=== PATIENT | female | born 1960 | race Caucasian/White ===

== ENCOUNTER → 2016-03-08 | Outpatient (CLI) | payer BC ==
[~2016-03-08] MED LIST: ASPI-390 PO; HYDR200T5 PO; IBUP-1050 PO; MULT-506 PO; PSEU60TA80 PO
[2016-03-08 10:57] LABS: BASO % 0.3 %; BASO ABS # 0.01 K/uL (0-0.2); COMPLETE YES; EOS % 1.9 %; HEMATOCRIT 38.9 % (37-47); IG% 0.3 %; LYMPH ABS # 1.59 K/uL (1.2-3.4); MEAN CELL VOLUME 94.2 fL (80-100); MEAN CORPUSCULAR HEMOGLOBIN 31.5 pg (25-34); MEAN CORPUSCULAR HGB CONC 33.4 g/dl (32-36); MEAN PLATELET VOLUME 11.2 fL (7.4-10.4); MONO % 7.8 %; NEUT % 46.7 %; PLATELET COUNT 186 K/uL (130-400); RED BLOOD COUNT 4.13 M/uL (4.2-5.4)
[2016-03-08 11:18] LABS: CREATININE 0.69 mg/dl (0.60-1.20)
== END | disposition home or self-care (01) ==
LOC: C.LABBC 08:07
PROVIDERS: ATTEND Internal Medicine Rheumatology
DX: M32.9 Systemic lupus erythematosus, unspecified (principal); Q79.6 Ehlers-Danlos syndromes; Z51.81 Encounter for therapeutic drug level monitoring; Z79.899 Other long term (current) drug therapy

== ENCOUNTER → 2016-03-20 | Outpatient (CLI) | payer BC | END | disposition home or self-care (01) | LOC: C.LABSPEC 11:24 | PROVIDERS: ATTEND Obstetrics & Gynecology | DX: N94.9 Unspecified condition associated with female genital organs and menstrual cycle (principal) ==

== ENCOUNTER → 2016-03-28 | Outpatient (CLI) | payer BC ==
[2016-03-28 12:00] LABS: BASO % 0.2 %; BASO ABS # 0.01 K/uL (0-0.2); COMPLETE YES; EOS % 1.4 %; HEMATOCRIT 38.9 % (37-47); LYMPH % 47.4 %; LYMPH ABS # 1.97 K/uL (1.2-3.4); MEAN CELL VOLUME 92.2 fL (80-100); MEAN CORPUSCULAR HEMOGLOBIN 30.8 pg (25-34); MEAN CORPUSCULAR HGB CONC 33.4 g/dl (32-36); MEAN PLATELET VOLUME 10.6 fL (7.4-10.4); MONO % 8.7 %; NEUT % 42.3 %; PLATELET COUNT 208 K/uL (130-400); RED BLOOD COUNT 4.22 M/uL (4.2-5.4); WHITE BLOOD COUNT 4.16 K/uL (4.8-10.8)
[2016-03-28 12:01] LABS: URINE APPEARANCE CLEAR (CLEAR); URINE BILIRUBIN NEG (NEG); URINE COLOR YELLOW; URINE NITRITE NEG (NEG); URINE SPECIFIC GRAVITY 1.014 (1.000-1.030); UROBILINOGEN NEG (NEG); ZZUR CULT IF INDIC CLEAN CATCH NO
[2016-03-28 12:16] LABS: MANUAL MICROSCOPIC REQUIRED? NO; REVIEW REQ? NO
[2016-04-02 02:23] LABS: ANTI-CENTROMERE AB <1.0 NEG AI (<1.0 NEG); ANTI-SS-A <1.0 NEG AI (<1.0 NEG); ANTI-SS-B <1.0 NEG AI (<1.0 NEG); DNA ds CRITHIDIA NEGATIVE (NEGATIVE); Sm Antibody <1.0 NEG AI (<1.0 NEG)
[2016-04-02 12:48] LABS: ANA TITER 1:40 TITER (<1:40)
== END | disposition home or self-care (01) ==
LOC: C.LAB1850 11:01
PROVIDERS: ATTEND Internal Medicine Rheumatology
DX: M32.9 Systemic lupus erythematosus, unspecified (principal); Z79.899 Other long term (current) drug therapy; D72.819 Decreased white blood cell count, unspecified

== ENCOUNTER → 2016-06-17 | Outpatient (CLI) | payer BC ==
--- NOTE | 2016-06-17 15:57 | MAMMOGRAPHY REPORT ---
BILATERAL DIGITAL DIAGNOSTIC MAMMOGRAM TOMOSYNTHESIS WITH CAD AND TARGETED BILATERAL ULTRASOUND: 06/17 CLINICAL HISTORY: 55-year-old woman presents for follow-up of benign-appearing complicated cysts in the lateral right breast, thought to correlate with mammographic masses. Also annual bilateral scre ening exam. TECHNIQUE: Bilateral CC and MLO 2-D digital and tomosynthesis images were obtained. Current study was also evaluated with a Computer Aided Detection (CAD) system. COMPARISON: Comparison is made to exams dated: 05/23/2015 ultrasound, 05/23/2015 mammogram, 11/17/2014 m ammogram, 05/17/2014 mammogram, 03/06/2012 mammogram, and 02/25/2011 mammogram - [facility] enter. BREAST COMPOSITION: There are scattered areas of fibroglandular density in both breasts. FINDINGS: The previously observed 7.3 mm circumscribed mass in the lateral, middle one third of the right breast on the CC view has decreased in size compared to the prior exam. Currently, no obvious new mass, focal area of architectural distortion or suspicious calcifications are identified in the right breast. There is a lobulated, 12 by 8mm mass in the lateral anterior left breast, thought to project just below the posterior nipple line on the MLO view, for which additional evaluation with ultrasound was performed. No other mass, focal area of architectural distortion or suspicious calci fications are seen in the left breast. Targeted ultrasound was performed in the lateral left breast, and also in the 7:00 to 8:00 axes of t he right breast. In the left 2:00 periareolar breast, there is a lobulated parallel anechoic benign simple cyst measuring 7.7 x 4.0 x 8.4 mm, and a more superficial adjacent hypoechoic cystic mass me asuring 4.6 mm. Another small cluster of cysts is identified in the 3:00 periareolar left breast me asuring 4.5 x 6.5 x 4.5 mm. In the 7:00 right breast, 2 cm from the nipple, there is a complicated cyst with thin internal nonvascular septations measuring 8.0 x 5.2 x 9.1 mm. There is an elongated collapsed cyst in the 8:00 right breast, 3 cm from the nipple, measuring 6.7 mm. IMPRESSION: ACR BI-RADS CATEGORY 2: BENIGN, TARGETED ULTRASOUND ACR BI-RADS CATEGORY 2: BENIGN 1. The previously observed mammographic and sonographic cyst in the 8:00 right breast has decreased compared to the prior mammograms and ultrasound. However, there is a persistent complicated cyst i n the 7:00 right breast on ultrasound, that is benign in appearance. 2. A lobulated mass in the left upper outer quadrant is thought to correlate with one of several cy sts/cysts clusters seen on ultrasound in the 2:00 to 3:00 axes. 3. Overall, the bilateral findings are most compatible with benign fibrocystic changes and scattere d cysts. There is no evidence of a suspicious spiculated or irregular mass or suspicious microcalci fications. Therefore, would recommend routine mammography in one year. These results and recommendations were discussed with the patient at the time of the exam. Approximately 10% of breast cancers are not detected with mammography. A negative mammographic repor t should not delay biopsy if a clinically suggestive mass is present. Misty Maynard M.D. ay/:06/17/2016 15:32:55 Parent Coach: Mayelin DAVE(Job)(M), [facility] letter sent: Normal 1/2 BI-RADS Code: ACR BI-RADS Category 2: Benign Ultrasound BI-RADS: ACR BI-RADS Category 2: Benign
== END | disposition home or self-care (01) ==
LOC: C.MAMM 08:41
PROVIDERS: ATTEND Internal Medicine
DX: Z09 Encounter for follow-up examination after completed treatment for conditions other than malignant neoplasm (principal); R92.8 Other abnormal and inconclusive findings on diagnostic imaging of breast; N60.01 Solitary cyst of right breast

== ENCOUNTER → 2016-10-25 | Outpatient (CLI) | payer BC ==
[2016-10-25 10:54] LABS: BASO % 0.5 %; BASO ABS # 0.02 K/uL (0-0.2); COMPLETE YES; EOS % 1.3 %; HEMATOCRIT 38.5 % (37-47); LYMPH % 44.3 %; LYMPH ABS # 1.74 K/uL (1.2-3.4); MEAN CELL VOLUME 95.8 fL (80-100); MEAN CORPUSCULAR HEMOGLOBIN 30.6 pg (25-34); MEAN CORPUSCULAR HGB CONC 31.9 g/dl (32-36); MONO % 6.9 %; PLATELET COUNT 200 K/uL (130-400); RED BLOOD COUNT 4.02 M/uL (4.2-5.4); WHITE BLOOD COUNT 3.93 K/uL (4.8-10.8)
[2016-10-25 11:30] LABS: ALT/SGPT 26 U/L (12-78); AST/SGOT 24 U/L (15-37); CREATININE 0.71 mg/dl (0.60-1.20)
== END | disposition home or self-care (01) ==
LOC: C.LABBC 09:08
PROVIDERS: ATTEND Internal Medicine Rheumatology
DX: Z79.899 Other long term (current) drug therapy (principal)

== ENCOUNTER → 2016-12-14 | Outpatient (CLI) | payer BC | END | disposition home or self-care (01) | LOC: C.LAB 10:25 | PROVIDERS: ATTEND Nurse Practitioner Adult Health | DX: R31.29 Other microscopic hematuria (principal) ==

== ENCOUNTER → 2017-03-13 | Outpatient (CLI) | payer OTHER | END | disposition home or self-care (01) | LOC: C.LABSPEC 10:51 | PROVIDERS: ATTEND Urology | DX: R35.0 Frequency of micturition (principal); N76.0 Acute vaginitis; N94.9 Unspecified condition associated with female genital organs and menstrual cycle ==

== ENCOUNTER → 2017-05-28 | Outpatient (CLI) | payer OTHER ==
[~2017-05-28] MED LIST changes: +DICL1GEL12 TD; +FLUT0.15 NAE; +PROG1GEL PV
--- NOTE | 2017-05-28 08:36 | DIAGNOSTIC IMAGING REPORT ---
RIGHT ANKLE ULTRASOUND CLINICAL HISTORY: M25.561 Pain in joint involving right lower leg above right ankle COMPARISON STUDY: None. FINDINGS: Real-time sonographic imaging within the right ankle was performed with lead customer service representative images submitted. No fluid collections or masses identified within the right ankle. There are few thrombosed varicosities/superficial veins at the medial right ankle. This corresponds the patient's area of interest. IMPRESSION: There are few thrombosed superficial vein/varicosities within the medial right ankle which corresponds the patient's area of interest. Electronically signed by: Harish Mcdaniel M.D. 05/28/2017 8:35 AM Dictated Date/Time: 05/28/2017 8:33 AM
== END | disposition home or self-care (01) ==
LOC: C.ULTR 08:05
PROVIDERS: ATTEND Internal Medicine
DX: M25.561 Pain in right knee (principal); I82.811 Embolism and thrombosis of superficial veins of right lower extremity

== ENCOUNTER 2017-06-02 19:19 | Emergency (ER) | payer OTHER ==
[~2017-06-02] VITALS: Ht 170.2 cm; Wt 64.5 kg
[~2017-06-02 19:19] MED LIST changes: -DICL1GEL12 TD; -FLUT0.15 NAE; -PROG1GEL PV
[2017-06-02 19:22] VITALS: Ht 170.2 cm; Wt 64.5 kg
[2017-06-02 19:55] LABS: BASO % 0.4 %; BASO ABS # 0.02 K/uL (0-0.2); EOS % 0.6 %; EOS ABS # 0.03 K/uL (0-0.5); HEMATOCRIT 36.5 % (37-47); HEMOGLOBIN 12.4 g/dL (12.0-16.0); IG# 0.01 K/uL (0.00-0.02); LYMPH % 48.8 %; LYMPH ABS # 2.43 K/uL (1.2-3.4); MEAN CELL VOLUME 94.3 fL (80-100); MEAN PLATELET VOLUME 10.4 fL (7.4-10.4); MONO % 4.6 %; MONO ABS # 0.23 K/uL (0.11-0.59); NEUT % 45.4 %; NEUT ABS # 2.26 K/uL (1.4-6.5); PLATELET COUNT 180 K/uL (130-400); RED CELL DISTRIBUTION WIDTH CV 12.3 % (11.5-14.5); RED CELL DISTRIBUTION WIDTH SD 41.5 fL (36.4-46.3); WHITE BLOOD COUNT 4.98 K/uL (4.8-10.8)
--- NOTE | 2017-06-02 19:57 | DIAGNOSTIC IMAGING REPORT ---
CHEST ONE VIEW PORTABLE HISTORY: 56 years-old Female EVALUATE ALTERED MENTAL STATUS/WEAKNESS acute altered mental status with weakness COMPARISON: Chest radiograph 07/03/2012 TECHNIQUE: Portable AP view of the chest FINDINGS: Cardiomediastinal and hilar silhouettes are within normal limits. The lungs are mildly hyperinflated without pneumothorax, pleural effusion, focal airspace consolidation or overt pulmonary edema. Bones of the chest appear grossly intact. IMPRESSION: No acute process. The above report was generated using voice recognition software. It may contain grammatical, syntax or spelling errors. Electronically signed by: James Fortune M.D. 06/02/2017 7:56 PM Dictated Date/Time: 06/02/2017 7:55 PM
[2017-06-02 20:12] LABS: ALT/SGPT 29 U/L (12-78); AST/SGOT 27 U/L (15-37); BLOOD UREA NITROGEN 13 mg/dl (7-18); CARBON DIOXIDE 30 mmol/L (21-32); CREATININE 0.81 mg/dl (0.60-1.20); GLUCOSE 121 mg/dl (70-99); POTASSIUM 3.4 mmol/L (3.5-5.1); SODIUM 139 mmol/L (136-145)
[2017-06-02 20:15] LABS: PTT PATIENT 26.6 SECONDS (21.0-31.0)
[2017-06-02 20:21] LABS: ALKALINE PHOSPHATASE 60 U/L (45-117); CKMB 0.7 ng/ml (0.5-3.6); TOTAL PROTEIN 7.9 gm/dl (6.4-8.2)
[2017-06-02] MEDS ORDERED: FLUT0.15 NAE (20:34)
[2017-06-02] MEDS ORDERED: PROG1GEL PV (20:36)
[2017-06-02] MEDS ORDERED: DICL1GEL12 TD (20:37)
[2017-06-02] MEDS ORDERED: GI COCKTAIL PO STA (20:51)
[2017-06-02] MEDS ORDERED: LIDOCAINE HCL 2% VISC SOLN 20 ML UDC ONE (20:58)
[2017-06-02] MEDS ORDERED: ALUMINUM/MAGNESIUM SUSP 30 ML UDC ONE (20:58)
[2017-06-02] MEDS ORDERED: PANTOprazole SOD 40 MG TAB PO STA (21:41)
[2017-06-02 22:02] VITALS: BP 116/60; PULSE 62; O2SAT 98
--- NOTE | 2017-06-02 22:11 | EMERGENCY ROOM VISIT NOTE ---
History Report prepared by Cathy: Carmen Oseguera Under the Supervision of: Dr. Sandoval Dick D.O. First contact with patient: 19:25 Chief Complaint: CARDIAC ASSESSMENT Stated Complaint: A FIB History of Present Illness The patient is a 56 year old female who presents to the Emergency Room with complaints of an episode of palpitations around 1800 today. The patient has been experiencing some irregular heartbeats recently. She has seen her PCP and had an EKG. She has been keeping track of her heartbeats on her phone and has noticed that her heartbeat skips sometimes. This lasts for a few seconds at a time. Today at 1800, she had the irregular heartbeats for a longer time. It lasted for 7-8 minutes. She reports a "sucking" sensation in her chest. She thinks that the sensation might worsen with sitting up. She reports dizziness. Her hand felt weak and tingly when she was trying to write today. She has had some SOB. She denies any abdominal pain, nausea, trouble walking, or headache. The patient has been on Plaquenil for the past 20 years for lupus. She has a family history of atrial fibrillation. She has not had a stress test or heart catheterization in the past. She drinks alcohol once a week. She denies any tobacco use. Source of History: patient Onset: 1800 Position: chest Quality: other (palpitations) Timing: other (episodic) Associated Symptoms: + chest pain, + SOB, + weakness, No headache, No nausea , No abdominal pain Note: Pt reports dizziness. Review of Systems See HPI for pertinent positives & negatives. A total of 10 systems reviewed and were otherwise negative. Past Medical & Surgical Medical Problems: (1) Lupus Family History Atrial fibrillation Social History Smoking Status: Never Smoker Marital Status: Occupation Status: employed Current/Historical Medications Scheduled Diclofenac Sodium (Topical) (Voltaren 1% Top Gel), 1 APPLN TD BID Fluticasone Propionate (Nasal) (Flonase Allergy Relief), 1 SPRAY GIBSON BID Hydroxychloroquine Sulfate (Plaquenil), 200 MG PO DAILY Multivitamin (Multivitamin), 1 TAB PO DAILY Progesterone (Vaginal) (Crinone), 1 APPLN PV 2XWK Allergies Coded Allergies: Sulfa Drugs (Verified Allergy, Unknown, 06/02/17) Sulfamethoxazole w/Trimethoprim (Unverified Allergy, Unknown, ., 06/02/17) Physical Exam Vital Signs Date Time Temp Pulse Resp B/P (MAP) Pulse Ox O2 Delivery O2 Flow Rate FiO2 06/02/17 22:02 62 16 116/60 98 06/02/17 21:06 70 16 118/67 97 06/02/17 20:30 61 06/02/17 19:22 36.4 68 16 145/75 99 Room Air Physical Exam GENERAL: Patient is awake, alert, and in no acute distress. Patient is resting comfortably and showing no signs of anxiety EYES: The conjunctivae are clear. The pupils are round and reactive. EARS, NOSE, MOUTH AND THROAT: The nose is without any evidence of any deformity. Mucous membranes are moist tongue is midline NECK: The neck is nontender and supple. RESPIRATORY: Normal respiratory effort is noted there is no evidence of wheezing rhonchi or rales CARDIOVASCULAR: Regular rate and rhythm noted there no murmurs rubs or gallops normal S1 normal S2 GASTROINTESTINAL: The abdomen is soft. Bowel sounds are present in all quadrants. Abdomen is nontender MUSCULOSKELETAL/EXTREMITIES: There is no evidence of gross deformity full range of motion is noted in the hips and shoulders SKIN: There is no obvious evidence of any rash. There are no petechiae, pallor or cyanosis noted. NEUROLOGIC: Patient is awake alert and oriented x3 strength is symmetric patellar reflexes are 2+ bilaterally Medical Decision & Procedures ER Provider Diagnostic Interpretation: X-ray results as stated below per interpretation by me and the radiologist. CHEST ONE VIEW PORTABLE HISTORY: 56 years-old Female EVALUATE ALTERED MENTAL STATUS/WEAKNESS acute altered mental status with weakness COMPARISON: Chest radiograph 07/03/2012 TECHNIQUE: Portable AP view of the chest FINDINGS: Cardiomediastinal and hilar silhouettes are within normal limits. The lungs are mildly hyperinflated without pneumothorax, pleural effusion, focal airspace consolidation or overt pulmonary edema. Bones of the chest appear grossly intact. IMPRESSION: No acute process. The above report was generated using voice recognition software. It may contain grammatical, syntax or spelling errors. Electronically signed by: James Fortune M.D. 06/02/2017 7:56 PM Dictated Date/Time: 06/02/2017 7:55 PM Laboratory Results 06/02/17 19:42 Red Blood Count 3.87, Mean Corpuscular Volume 94.3, Mean Corpuscular Hemoglobin 32.0, Mean Corpuscular Hemoglobin Concent 34.0, Mean Platelet Volume 10.4, Neutrophils (%) (Auto) 45.4, Lymphocytes (%) (Auto) 48.8, Monocytes (%) (Auto) 4.6, Eosinophils (%) (Auto) 0.6, Basophils (%) (Auto) 0.4, Neutrophils # (Auto) 2.26, Lymphocytes # (Auto) 2.43, Monocytes # (Auto) 0.23, Eosinophils # (Auto) 0.03, Basophils # (Auto) 0.02 06/02/17 19:42 Test 06/02/17 19:42 06/02/17 19:47 06/02/17 20:15 White Blood Count 4.98 K/uL (4.8-10.8) Red Blood Count 3.87 M/uL (4.2-5.4) Hemoglobin 12.4 g/dL (12.0-16.0) Hematocrit 36.5 % (37-47) Mean Corpuscular Volume 94.3 fL (80-100) Mean Corpuscular Hemoglobin 32.0 pg (25-34) Mean Corpuscular Hemoglobin Concent 34.0 g/dl (32-36) Platelet Count 180 K/uL (130-400) Mean Platelet Volume 10.4 fL (7.4-10.4) Neutrophils (%) (Auto) 45.4 % Lymphocytes (%) (Auto) 48.8 % Monocytes (%) (Auto) 4.6 % Eosinophils (%) (Auto) 0.6 % Basophils (%) (Auto) 0.4 % Neutrophils # (Auto) 2.26 K/uL (1.4-6.5) Lymphocytes # (Auto) 2.43 K/uL (1.2-3.4) Monocytes # (Auto) 0.23 K/uL (0.11-0.59) Eosinophils # (Auto) 0.03 K/uL (0-0.5) Basophils # (Auto) 0.02 K/uL (0-0.2) RDW Standard Deviation 41.5 fL (36.4-46.3) RDW Coefficient of Variation 12.3 % (11.5-14.5) Immature Granulocyte % (Auto) 0.2 % Immature Granulocyte # (Auto) 0.01 K/uL (0.00-0.02) Erythrocyte Sedimentation Rate 4 mm/hr (0-21) Prothrombin Time 10.4 SECONDS (9.0-12.0) Prothromb Time International Ratio 1.0 (0.9-1.1) Activated Partial Thromboplast Time 26.6 SECONDS (21.0-31.0) Partial Thromboplastin Ratio 1.0 Anion Gap 4.0 mmol/L (3-11) Est Creatinine Clear Calc Drug Dose 77.2 ml/min Estimated GFR () 95.4 Estimated GFR (Non- 82.3 BUN/Creatinine Ratio 15.9 (10-20) Calcium Level 9.0 mg/dl (8.5-10.1) Magnesium Level 2.3 mg/dl (1.8-2.4) Total Bilirubin 0.4 mg/dl (0.2-1) Direct Bilirubin 0.1 mg/dl (0-0.2) Aspartate Amino Transf (AST/SGOT) 27 U/L (15-37) Alanine Aminotransferase (ALT/SGPT) 29 U/L (12-78) Alkaline Phosphatase 60 U/L (45-117) Total Creatine Kinase 128 U/L (26-192) Creatine Kinase MB 0.7 ng/ml (0.5-3.6) Creatine Kinase MB Ratio 0.5 (0-3.0) Troponin I < 0.015 ng/ml (0-0.045) C-Reactive Protein < 0.29 mg/dl (0-0.29) Total Protein 7.9 gm/dl (6.4-8.2) Albumin 4.0 gm/dl (3.4-5.0) Thyroid Stimulating Hormone (TSH) 1.780 uIu/ml (0.300-4.500) Bedside D-Dimer 126 ng/mlFEU (0-450) Bedside Troponin I < 0.030 ng/ml (0-0.045) Urine Color YELLOW Urine Appearance CLEAR (CLEAR) Urine pH 8.5 (4.5-7.5) Urine Specific [place] 1.005 (1.000-1.030) Urine Protein NEG (NEG) Urine Glucose (UA) NEG (NEG) Urine Ketones NEG (NEG) Urine Occult Blood NEG (NEG) Urine Nitrite NEG (NEG) Urine Bilirubin NEG (NEG) Urine Urobilinogen NEG (NEG) Urine Leukocyte Esterase NEG (NEG) Laboratory results per my review. Medications Administered Medications (Trade) Dose Ordered Sig/Gorge Route Start Time Stop Time Status Last Admin Dose Admin Al Hydroxide/Mg Hydroxide (Maalox Susp) 30 ml STK-MED ONCE .ROUTE 06/02/17 20:58 06/02/17 20:59 DC 06/02/17 21:04 30 ML Lidocaine HCl (Viscous Lidocaine 2% Soln) 20 ml STK-MED ONCE .ROUTE 06/02/17 20:58 06/02/17 20:59 DC 06/02/17 21:04 20 ML Pantoprazole Sodium (Protonix Tab) 40 mg NOW STAT PO 06/02/17 21:41 06/02/17 21:42 DC 06/02/17 21:53 40 MG ECG Per My Interpretation Indication: palpitations Rate (beats per minute): 63 Rhythm: normal sinus Findings: no ectopy, other (no acute ST segment abnormality) Comparison ECG Date: no prior available ED Course 1930: The patient was evaluated in room A3. A complete history and physical examination were performed. 2057: Lidocaine HCl 20 ml PO, Maalox Susp 30 ml PO. 2107: Repeat EKG per my interpretation shows normal sinus rhythm, rate 66, no ectopy, no acute ST segment abnormality, no change from earlier. 2140: Protonix Tab 40 mg PO. 2142: Upon reevaluation, the patient is resting comfortably. I discussed the results and treatment plan with her. She verbalized agreement of the treatment plan. She was discharged home. Medical Decision Prior records/ancillary studies reviewed. Triage Nursing notes reviewed. Additional history obtained from significant other. The patient's history was concerning for chest pain. Differential diagnosis: Etiologies such as cardiac ischemia, aortic dissection, pulmonary embolism, pneumonia, pneumothorax, musculoskeletal, infections, pericarditis, myocarditis , esophageal rupture, gastrointestinal, as well as others were entertained. The patient is a 56-year-old female who presented to the emergency department for an evaluation of chest discomfort. The patient describes the discomfort which was retrosternal which was not a definite pain but more of a discomfort almost like a squeezing sensation. The patient had an EKG which did not reveal any acute ischemic changes. Her initial troponin was negative. I discussed the patient's laboratory and radiographic studies with her. I also discussed the limitations of the emergency department workup for chest pain with her. The patient does have a history of lupus. At some times she did describe the pain is positional so I thought it could be related to a pleurisy or serositis however it was not sustained. The patient was treated with a GI cocktail and had significant relief. I do not feel that her discomfort is cardiac at this time but it is possible this could represent a GI source for her discomfort. She was encouraged to rest and avoid any strenuous activity. I also discussed follow-up with her. I encouraged her to call her primary care physician in the morning to schedule a follow-up appointment as well as possible echocardiogram stress test or Holter monitoring. He was also encouraged to continue to try Maalox or Mylanta as directed for symptomatic relief and consider trying a proton pump inhibitor. Also encouraged her to return the emergency department immediately if symptoms change worsen or the need arises. Medication Reconcilliation Current Medication List: was personally reviewed by me Blood Pressure Screening Patient's blood pressure: Normal blood pressure Blood pressure disposition: Did not require urgent referral Impression Primary Impression: Chest pain Additional Impression: Palpitations Scribe Attestation The scribe's documentation has been prepared under my direction and personally reviewed by me in its entirety. I confirm that the note above accurately reflects all work, treatment, procedures, and medical decision making performed by me. Departure Information Dispostion Home / Self-Care Referrals RV. Denny MD (PCP) Forms IMPORTANT VISIT INFORMATION Patient Instructions ED Chest Pain Atypical Unkn Cause, My [facility] Additional Instructions Call your family doctor in the morning to schedule a follow-up appointment. Rest and avoid any strenuous activity. Continue all medications as prescribed. Consider using Maalox or Mylanta as directed for symptomatic relief. I would also recommend starting a proton pump inhibitor such as Nexium or Prilosec. Discussed the possibility with your family doctor that he may require further study such as a stress test and echocardiogram or Holter monitor to further evaluate the cause your discomfort. Return the emergency department immediately if symptoms change worsen or the need arises. Problem Qualifiers Primary Impression: Chest pain Chest pain type: unspecified Qualified Codes: R07.9 - Chest pain, unspecified
== END 2017-06-02 22:02 | disposition home or self-care (01) ==
LOC: C.EDB 19:21 → C.EDA 22:02
DX: R07.9 Chest pain, unspecified (principal); R00.2 Palpitations; M32.9 Systemic lupus erythematosus, unspecified; Z79.899 Other long term (current) drug therapy; Z88.2 Allergy status to sulfonamides

== ENCOUNTER → 2017-06-20 | Outpatient (CLI) | payer OTHER ==
[~2017-06-20] MED LIST changes: -ASPI-390 PO; +DICL1GEL12 TD; +FLUT0.15 NAE; -IBUP-1050 PO; +PROG1GEL PV; -PSEU60TA80 PO
--- NOTE | 2017-06-23 14:33 | MAMMOGRAPHY REPORT ---
BILATERAL DIGITAL SCREENING MAMMOGRAM TOMOSYNTHESIS WITH CAD: 06/20/2017 CLINICAL HISTORY: Routine screening. Patient has no complaints. TECHNIQUE: Breast tomosynthesis in addition to standard 2D mammography was performed. Current study was also evaluated with a Computer Aided Detection (CAD) system. COMPARISON: Comparison is made to exams dated: 06/17/2016 ultrasound, 06/17/2016 mammogram, 05/23/2015 ult rasound, 05/23/2015 mammogram, 11/17/2014 ultrasound, and 11/17/2014 mammogram - [facility]. BREAST COMPOSITION: There are scattered areas of fibroglandular density in both breasts. FINDINGS: No suspicious masses, calcifications, or areas of architectural distortion are noted in ei ther breast. There has been no significant interval change compared to prior exams. IMPRESSION: ACR BI-RADS CATEGORY 1: NEGATIVE There is no mammographic evidence of malignancy. A 1 year screening mammogram is recommended. The pa tient will receive written notification of the results. Approximately 10% of breast cancers are not detected with mammography. A negative mammographic report should not delay biopsy if a clinically suggestive mass is present. Cris Alan M.D. /:06/20/2017 14:37:04 New Media Strategist: Ida June, [facility] letter sent: Normal 1/2 BI-RADS Code: ACR BI-RADS Category 1: Negative
== END | disposition home or self-care (01) ==
LOC: C.MAMM 08:49
PROVIDERS: ATTEND Obstetrics & Gynecology
DX: Z12.31 Encounter for screening mammogram for malignant neoplasm of breast (principal)